=== PATIENT | male | born 1990 | race Caucasian/White ===

== ENCOUNTER 2018-10-26 20:54 | Emergency (ER) | payer MEDICAID ==
[~2018-10-26] VITALS: Ht 170.2 cm; Wt 65.8 kg
[~2018-10-26 20:54] MED LIST: DEPAKOTE250 MG PO; ZYPREXA2.5 MG ORAL
[2018-10-26 21:00] VITALS: BP 140/84
[2018-10-26] MEDS ORDERED: LORazepam 1mg tab ORAL ONE (21:15)
--- NOTE | 2018-10-26 21:21 | Emergency Room Report ---
History of Present Illness General Chief Complaint: Substance Abuse Source: Patient, EMS Present Illness HPI Is a 28-year-old male who has a history of methamphetamine abuse. He called 911 because using methamphetamine for the last 4 days. He felt weak and jittery. No fever chills but no suicidal thoughts or homicidal thought. No nausea no vomiting. Has not been eating or drinking because he has been using drugs. Denies any other complaint. Allergies: Coded Allergies: No Known Allergies (Unverified , 10/26/18) Patient History Past Medical History: see triage record, old chart reviewed Past Surgical History: none Pertinent Family History: none Social History: Reports: drug use Immunizations: other Reviewed Nursing Documentation: PMH: Agreed; PSxH: Agreed Nursing Documentation-PMH History Of Psychiatric Problem: Yes - bipolar Review of Systems Constitutional: Reports: weakness Eye: Denies: eye pain, blurred vision ENT: Denies: ear pain, nose congestion, throat swelling Respiratory: Denies: cough, shortness of breath Cardiovascular: Denies: chest pain, palpitations Gastrointestinal: Denies: abdominal pain, diarrhea, nausea, vomiting Musculoskeletal: Denies: back pain, joint pain Skin: Denies: rash Psychiatric: Reports: anxiety Neurological: Denies: headache, numbness Endocrine: Denies: increased thirst, increased urine Hematologic/Lymphatic: Denies: easy bruising All Other Systems: negative except mentioned in HPI Physical Exam Vital Signs Date Time Temp Pulse Resp B/P (MAP) Pulse Ox O2 Delivery O2 Flow Rate FiO2 10/26/18 20:47 97.7 104 18 140/84 98 Room Air vitals unremarkable Sp02 EP Interpretation: reviewed, normal General Appearance: well appearing, no apparent distress, alert Head: normocephalic, atraumatic Eyes: bilateral eye PERRL, bilateral eye EOMI ENT: hearing grossly normal, normal pharynx Neck: full range of motion, supple, no meningismus Respiratory: chest non-tender, lungs clear, normal breath sounds Cardiovascular #1: regular rate, rhythm, no murmur Gastrointestinal: normal bowel sounds, non tender, no mass, no organomegaly, no bruit, non-distended Musculoskeletal: back normal, gait/station normal, normal range of motion Neurologic: alert, oriented x3 Psychiatric: anxious - Anxious and jittery Skin: warm/dry Medical Decision Making Diagnostic Impression: Primary Impression: Methamphetamine intoxication ER Course Patient with methamphetamine abuse. He has some intoxication and agitation with it. Better with Ativan. No criteria for 5150. He does not express any suicidal thoughts or homicidal thought. No hallucination or delusion. This patient is a chronic risk of self injury due to poor impulse control, limited coping skills, and judgment intermittently impaired by intoxication. 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 Hospitalization would likely attenuate risk of self-harm only during care home period, without lasting risk reduction. Serious self-harm , while possible, would likely be inadvertent, and because of impulsivity, and foreseeable. For these reasons, I do not believe hospitalization would provide meaningful reduction in risk of self-harm. Last Vital Signs Date Time Temp Pulse Resp B/P (MAP) Pulse Ox O2 Delivery O2 Flow Rate FiO2 10/26/18 20:47 97.7 104 18 140/84 98 Room Air Status: improved Disposition: HOME, SELF-CARE Condition: Stable Patient Instructions: Stimulant Use Disorder-Methamphetamines Additional Instructions: Stop using drugs. Follow-up with rehabilitation within a week. Return if worse. Dannie Hamilton MD Oct 26, 2018 21:21
[2018-10-26 21:24] VITALS: BP 140/84
[2018-10-26] MEDS ORDERED: ATIVAN0.5 MG ORAL (23:14)
== END 2018-10-26 21:40 | disposition home or self-care (01) ==
LOC: EDBD 20:54 → EMR 21:29
DX: F15.129 Other stimulant abuse with intoxication, unspecified (principal); F31.9 Bipolar disorder, unspecified; F41.9 Anxiety disorder, unspecified
CPT/HCPCS: 99282

== ENCOUNTER 2018-10-26 23:01 | Emergency (ER) | payer MEDICAID ==
[~2018-10-26] VITALS: Ht 170.2 cm; Wt 65.8 kg
[2018-10-26] MEDS ORDERED: ATIVAN0.5 MG ORAL (23:14)
[2018-10-26 23:20] VITALS: BP 132/74
--- NOTE | 2018-10-26 23:58 | Emergency Room Report ---
History of Present Illness General Chief Complaint: Behavioral Complaint Source: Patient Present Illness HPI Is a 28-year-old male whom I saw few hours ago. He came back with the same complaint of methamphetamine abuse. He never left day waiting room. He denies suicidal thought homicidal thought. Denies any other complaint. Said he is not homeless. Said his staying with a friend in [place]. He said his visiting from [place]. Allergies: Coded Allergies: No Known Allergies (Unverified , 10/26/18) Patient History Past Medical History: see triage record, old chart reviewed Past Surgical History: none Pertinent Family History: none Social History: Reports: drug use Immunizations: other Reviewed Nursing Documentation: PMH: Agreed; PSxH: Agreed Nursing Documentation-PMH History Of Psychiatric Problem: Yes - BI POLAR DIS 1 Review of Systems Eye: Denies: eye pain, blurred vision ENT: Denies: ear pain, nose congestion, throat swelling Respiratory: Denies: cough, shortness of breath Cardiovascular: Denies: chest pain, palpitations Gastrointestinal: Denies: abdominal pain, diarrhea, nausea, vomiting Musculoskeletal: Denies: back pain, joint pain Skin: Denies: rash Neurological: Denies: headache, numbness Endocrine: Denies: increased thirst, increased urine Hematologic/Lymphatic: Denies: easy bruising All Other Systems: negative except mentioned in HPI Physical Exam Vital Signs Date Time Temp Pulse Resp B/P (MAP) Pulse Ox O2 Delivery O2 Flow Rate FiO2 10/26/18 23:18 98.1 78 15 132/74 99 vitals normal Sp02 EP Interpretation: reviewed, normal General Appearance: well appearing, no apparent distress, alert Head: normocephalic, atraumatic Eyes: bilateral eye PERRL, bilateral eye EOMI ENT: hearing grossly normal, normal pharynx Neck: full range of motion, supple, no meningismus Respiratory: chest non-tender, lungs clear, normal breath sounds Cardiovascular #1: regular rate, rhythm, no murmur Gastrointestinal: normal bowel sounds, non tender, no mass, no organomegaly, no bruit, non-distended Musculoskeletal: back normal, gait/station normal, normal range of motion Psychiatric: mood/affect normal Skin: warm/dry Medical Decision Making Diagnostic Impression: Primary Impression: Methamphetamine abuse Last Vital Signs Date Time Temp Pulse Resp B/P (MAP) Pulse Ox O2 Delivery O2 Flow Rate FiO2 10/26/18 23:18 98.1 78 15 132/74 99 Status: unchanged Disposition: HOME, SELF-CARE Condition: Stable Patient Instructions: Self-Destructive Behavior Additional Instructions: Stop using drugs. Follow-up in rehabilitation in 7 days. Return if worse. Dannie Hamilton MD Oct 26, 2018 23:58
[2018-10-27 00:05] VITALS: BP 132/74
== END 2018-10-27 00:05 | disposition home or self-care (01) ==
LOC: EMR 23:34
DX: F15.10 Other stimulant abuse, uncomplicated (principal); F31.9 Bipolar disorder, unspecified
CPT/HCPCS: 99282

== ENCOUNTER 2019-12-02 00:12 | Emergency (ER) | payer MEDICAID ==
[~2019-12-02] VITALS: Ht 175.3 cm; Wt 63.5 kg
[~2019-12-02 00:12] MED LIST changes: +ATIVAN0.5 MG ORAL
[2019-12-02 00:30] VITALS: BP 109/69
--- NOTE | 2019-12-02 00:30 | NUR ---
ED Nurse Note: Pt walked into ED from [facility] for c/o etoh intoxication. Pt states he had 8 cocktails at the [facility] tonight and now has n/v and mild abdominal pain. Pt is swaying when walking, but aaox4, no acute distress noted. Will continue to monitor.
[2019-12-02] MEDS ORDERED: DiphenhydrAMINE 50mg/ml Inj IVP ONE (00:45)
--- NOTE | 2019-12-02 01:22 | Emergency Room Report ---
History of Present Illness General Chief Complaint: Alcohol Intoxication Source: Patient Present Illness HPI 29-year-old male presents with acute alcohol intoxication patient was drinking 7 hard liquor drinks, he endorses nausea, abdominal pain, achy in nature aggravated with alcohol no alleviating factors severity is moderate, constant, patient reports he may have alcohol poisoning Allergies: Coded Allergies: HALOPERIDOL (Verified Allergy, Unknown, 12/02/19) Patient History Past Medical History: see triage record Social History: Reports: alcohol use Reviewed Nursing Documentation: PMH: Agreed; PSxH: Agreed Review of Systems All Other Systems: negative except mentioned in HPI Physical Exam Vital Signs Date Time Temp Pulse Resp B/P (MAP) Pulse Ox O2 Delivery O2 Flow Rate FiO2 12/02/19 00:21 97.5 110 18 109/69 (82) 97 Room Air Sp02 EP Interpretation: reviewed, normal General Appearance: well appearing, no apparent distress, alert Head: normocephalic, atraumatic Eyes: bilateral eye PERRL, bilateral eye EOMI ENT: uvula midline, moist mucus membranes Neck: supple, thyroid normal, supple/symm/no masses Respiratory: lungs clear, no respiratory distress, no retraction, no accessory muscle use Cardiovascular #1: normal peripheral pulses, regular rate, rhythm, no edema, no gallop, no murmur Gastrointestinal: non tender, soft, no guarding, no rebound Musculoskeletal: normal inspection Neurologic: alert, oriented x3 Psychiatric: mood/affect normal Skin: no rash, warm/dry Medical Decision Making Diagnostic Impression: Primary Impression: Acute alcoholic intoxication Qualified Codes: F10.920 - Alcohol use, unspecified with intoxication, uncomplicated ER Course 29-year-old male presents with acute alcohol intoxication, will rehydrate, will provide Zofran, will continue to monitor until patient jw Reevaluation 5 AM, patient feels better, after fluid rehydration, Zofran Disposition home with return precautions Last Vital Signs Date Time Temp Pulse Resp B/P (MAP) Pulse Ox O2 Delivery O2 Flow Rate FiO2 12/02/19 00:30 97.5 110 18 109/69 97 Room Air Disposition: HOME, SELF-CARE Condition: Stable Referrals: [facility] Patient Instructions: Alcohol Intoxication, [id number] Additional Instructions: The patient was provided with discharge instructions, notified to follow-up with a primary care doctor and or specialist in the next 24-48 hours, and to return to the ED if they have worsening of their symptoms. Please note that this report is being documented using [employer] technology. This can lead to erroneous entry secondary to incorrect interpretation by the dictating instrument. Alli Flannery MD Dec 02, 2019 01:22
--- NOTE | 2019-12-02 02:30 | NUR ---
ED Nurse Note: Pt is sleeping at this time comfortably, no signs of acute distress noted. Will continue to monitor.
[2019-12-02 05:35] VITALS: BP 110/75
--- NOTE | 2019-12-02 05:35 | NUR ---
ER DISCHARGE NOTE: Patient is cleared to be discharged per ERMD, pt is aox4, on room air, with stable vital signs. pt was given dc instructions, pt was able to verbalize understanding, pt id band and iv site removed without complications. pt is able to ambulate with steady gait. pt took all belongings.
== END 2019-12-02 05:35 | disposition home or self-care (01) ==
LOC: EMR 01:00
DX: F10.920 Alcohol use, unspecified with intoxication, uncomplicated (principal); Z88.8 Allergy status to other drugs, medicaments and biological substances
CPT/HCPCS: 82962; 96361; 96374; 96375; J1200; J2405; J7030; S0028; Z7502; 99284